=== PATIENT | male | born 1990 | race Caucasian/White ===

== ENCOUNTER 2019-01-06 14:59 | Emergency (ER) | payer MEDICAID ==
[~2019-01-06] VITALS: Ht 180.3 cm; Wt 120.2 kg
[2019-01-06 15:08] VITALS: BP_SYST 148
[2019-01-06 15:54] LABS: CREATININE 0.94 mg/dL (0.55-1.30); POTASSIUM 3.7 mmol/L (3.5-5.1)
[2019-01-06 16:38] VITALS: BP_SYST 148
== END 2019-01-06 16:35 | disposition home or self-care (01) ==
LOC: SED 14:59
DX: E11.65 Type 2 diabetes mellitus with hyperglycemia (principal); R03.0 Elevated blood-pressure reading, without diagnosis of hypertension; Z86.2 Personal history of diseases of the blood and blood-forming organs and certain disorders involving the immune mechanism
CPT/HCPCS: 36415; 80048; 82962; 99283